=== PATIENT | female | born 1965 | race Caucasian/White ===

== ENCOUNTER 2018-12-30 20:51 | Observation (INO) ==
[2018-12-30 21:27] LABS: BASO# 0.02 X1000 (0.0-0.2); BASO% 0.2 % (0.0-0.8); EOS# 0.09 X1000 (0.0-0.7); EOS% 0.8 % (0.0-10.0); HEMOGLOBIN 11.4 g/dL (12.0-16.0); IMM GRAN# 0.05 X1000 (0.0-0.04); IMM GRAN% 0.4 % (0.0-0.5); LYMPH# 2.79 X1000 (1.2-3.4); LYMPH% 24.8 % (20.5-51.1); MCH 28.1 PG (27-31); MCHC 32.6 g/dL (33-37); MCV 86.2 FL (81-99); MONO% 7.1 % (1.7-9.3); MPV 11.4 FL (7.4-10.4); NEUT# 7.51 X1000 (1.4-6.5); NEUT% 66.7 % (42.2-75.2); PLT 251 X1000 (130-400); RBC 4.06 XMIL (4.2-5.4); RDW 16.2 % (11.5-14.5); WBC 11.26 X1000 (4.8-10.8)
[2018-12-30 21:38] LABS: AGAP 11; ALB/GLOB RATIO 1.6; ALBUMIN 3.4 g/dL (3.5-5.0); ALKALINE PHOSPHATASE 79 U/L (32-104); BUN 6 mg/dL (8-22); CALCIUM 8.5 mg/dL (8.8-10.2); CHLORIDE 101 mmol/L (98-107); CK PROFILE 46 U/L (24-173); COSMO 272; CREATININE 0.6 mg/dL (0.5-0.9); ESTIMATED GFR > 60; GLUCOSE 111 mg/dL (70-104); GOT 14 U/L (10-30); GPT 6 U/L (10-36); SODIUM 137 mmol/L (136-145); TCO2 25 mmol/L (25-35); TOTAL BILIRUBIN 0.25 mg/dL (0.20-1.00); TOTAL PROTEIN 5.5 g/dL (6.3-8.3)
[2018-12-30 21:45] LABS: INR 0.92; PROTIME 13.1 Seconds (11.0-16.0)
[2018-12-30 21:46] LABS: PTT 29.3 Seconds (22.3-41.8)
[2018-12-30 21:55] LABS: URINE SOURCE CLEAN CATCH
--- NOTE | 2018-12-30 22:00 | Diag Imaging Result Doc PS360 ---
EXAM: CHEST-2 VIEWS INDICATION: chest pain TECHNIQUE: 2 views COMPARISON: 12/08/2015 FINDINGS: The lungs are grossly clear. There is no discrete pleural fluid collection or pneumothorax. The cardiomediastinal silhouette and central vasculature are grossly unremarkable. IMPRESSION: No evidence of acute pathology by plain radiograph. Electronically signed by Sage Lake 12/30/2018 9:58 PM
[2018-12-30 22:04] LABS: BILIRUBIN URINE NEGATIVE (NEGATIVE); BLOOD URINE NEGATIVE (NEGATIVE); COLOR YELLOW; GLUCOSE URINE NEGATIVE (NEGATIVE); KETONE URINE NEGATIVE (NEGATIVE); LEUKOCYTES URINE MODERATE (NEGATIVE); NITRITE URINE NEGATIVE (NEGATIVE); PH URINE 5.5; PROTEIN URINE NEGATIVE (NEGATIVE); SP GRAVITY URINE 1.004; TURBIDITY URINE CLEAR (CLEAR); UR EPITHELIAL CELLS <10 /HPF (<10); URINE BACTERIA NEGATIVE /HPF; URINE RBC <10 /HPF (<10); URINE WBC 20-40 /HPF (<10); UROBILINOGEN URINE NORMAL (NORMAL)
[2018-12-30] MEDS ORDERED: ROCEPHIN 1 GM in NS 50 ML IV ONE (22:13)
--- NOTE | 2018-12-30 23:21 | PROVIDER DOCUMENTATION ---
This chart was entered by Martha Lake Scribe, acting as scribe for Adina Head MD. HPI-Chest Pain - General Chief Complaint: Chest Pain Stated Complaint: CHEST PAIN Time Seen by Provider: 12/30/18 21:03 Source: patient Allergies/Adverse Reactions: Patient Allergies Allergy/AdvReac Type Severity Reaction Status Date / Time morphine Allergy Severe ANAPHYLAXIS Verified 02/05/18 09:09 aspirin AdvReac Unknown NAUSEA Verified 02/05/18 09:09 Home Medications: Home Medication List Medication Instructions Recorded Confirmed Last Taken Type Alprazolam 1 mg PO TID 12/08/15 02/05/18 12/08/15 12:00 History Citalopram [Celexa] 20 mg PO DAILY 02/05/18 02/05/18 Unknown History Flurazepam [Dalmane] 30 mg PO QHS 02/05/18 02/05/18 Unknown History Hydrocodone/Acetaminophen [Monument 1 each PO PRN PRN 02/05/18 02/05/18 Unknown History 10-325 Tablet] Pantoprazole [Protonix] 40 mg PO DAILY@0700 02/05/18 02/05/18 Unknown History Pramipexole Di-HCl [Mirapex] 1 mg PO DAILY 02/05/18 02/05/18 Unknown History Oxycodone HCl/Acetaminophen 1 ea PO Q4H PRN #20 tab 02/13/18 Unknown Rx [Percocet 7.5-325 mg Tablet] - History of Present Illness-CP Nature of Presenting Problem: 53 yof presents to er w/co cp starting at 1800 in the substernal region. pt states pain radiates to left arm. pt has hx of multiple syncope episodes and wear a halter to measure rhythms. 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 pt is a smoker and smokes 1/2 ppd. Location: reports: substernal Chest Pain Radiation: reports: arms (left) Quality of Pain: reports: other (squeezing) Severity in ED: mild Onset/Duration: 1-3 hours ago Timing: still present Review of Systems - Adult - REVIEW OF SYSTEMS - ADULT Constitutional: reports: no symptoms reported Eyes: reports: no symptoms reported Ears, Nose, Mouth & Throat: reports: no symptoms reported Cardiovascular: reports: see HPI, chest pain (substernal radiating to left arm). denies: heart murmur, irregular heart rate, orthopnea, palpitations Respiratory: reports: no symptoms reported Gastrointestinal: reports: no symptoms reported Genitourinary: reports: no symptoms reported Musculoskeletal: reports: no symptoms reported Integumentary: reports: no symptoms reported Neurological: reports: no symptoms reported Psychiatric: reports: no symptoms reported Endocrine: reports: no symptoms reported Hematologic/Lymphatic: reports: no symptoms reported Allergic/Immunologic: reports: no symptoms reported All Other Systems: Reviewed and Negative Past History - Adult - PAST MEDICAL HISTORY-ADULT Review of Records: reports: Old Records Reviewed, Nursing Assessment Review, Medications Reviewed, Social history reviewed & non-contributory. Major Childhood Illnesses: reports: denies history Cardiovascular: reports: CAD, HTN, other (cardiac cath) Respiratory: reports: denies history Gastrointestinal: reports: other (diverticulitis) Obstetrical/Gynecological: reports: denies history Genitourinary: reports: denies history Musculoskeletal: reports: chronic pain, other (restless leg syndrome, neuropathy) Neurological: reports: denies history Psychiatric: reports: anxiety Endocrine/Immune: reports: denies history Other Conditions: reports: denies history - PRIOR SURGERIES/PROCEDURES Surgical/Procedure History: reports: appendectomy, cholecystectomy, hysterectomy , orthopedic (extremity) (right shoulder), gastric bypass - IMMUNIZATION STATUS Childhood Immunizations: UTD Flu Vaccine: See Nurse Assessment - FAMILY HISTORY Family History: CAD under 55yo (47 yr old female of 1st degree blood line) - SOCIAL HISTORY Smoking: cigarettes, less than 1 pack/day Provider spent 3-5 mins advising pt. on dangers of tobacco.: Discussed manners to quit use, and f/u contacts for add'l counseling. Substance Use: none/never Physical Exam-General - PHYSICAL EXAM-ADULT Initial Vital Signs Reviewed: Yes - CONSTITUTIONAL General Appearance: alert, mild distress, anxious, other (tearful). negative: cachetic, lethargic, slow to respond - EYES Eyes: PERRL/EOMI - HEAD, EARS, NOSE, MOUTH & THROAT HENMT: normocephalic/atraumatic, moist mucous membranes, normal ENT inspection - NECK Neck: non-tender, full range of motion, supple, normal inspection - RESPIRATORY Respiratory: chest non-tender, lungs clear, normal breath sounds - CARDIOVASCULAR Cardiovascular: normal peripheral pulses, regular rate, rhythm - CHEST (BREASTS) Chest/Breast: tenderness (substernal, reproducable w/self and with motion.). negative: no masses/lumps, no tenderness, nipple discharge - GASTROINTESTINAL (ABDOMEN) Abdominal Exam: normal bowel sounds, non tender, soft - LYMPHATIC Lymphatic: no adenopathy - MUSCULOSKELETAL Back Exam: normal inspection, no CVA tenderness, no vertebral tenderness Extremity: normal range of motion, non-tender, normal inspection Peripheral Pulses: radial (R): 2+, radial (L): 2+ - SKIN Integumentary: normal color, normal turgor, warm/dry - NEUROLOGIC Neurologic: supervisor drying and softening II-XII nml as tested, grossly normal, no motor/sensory deficits - PSYCHIATRIC Psych/Mental Status: normal mood/affect, normal thought content, normal thought process, oriented x 3 - HEART Score HEART Score: History: Moderately Suspicious HEART Score: ECG: Normal HEART Score: Age: 45-65 Years HEART Score: Risk Factors for Atherosclerotic Disease: 1 or 2 Risk Factors HEART Score: Troponin: < or = Normal Limit Total HEART Score:: 3 Progress - PLAN OF CARE/RESULTS Progress/Plan/Lab Results: Vital Signs - 8 hr 12/30/18 21:08 12/30/18 21:19 12/30/18 21:21 Pulse Rate 76 74 73 Respiratory Rate 21 16 9 L Blood Pressure 91/61 110/69 O2 Sat by Pulse Oximetry 96 96 96 12/30/18 21:38 12/30/18 21:43 12/30/18 21:50 Pulse Rate 78 78 72 Respiratory Rate 14 22 26 H Blood Pressure 125/75 O2 Sat by Pulse Oximetry 98 96 97 12/30/18 22:00 Pulse Rate 71 Respiratory Rate 16 Blood Pressure O2 Sat by Pulse Oximetry 96 Laboratory Results - last 24 hr 12/30/18 12/30/18 12/30/18 21:05 21:05 21:05 WBC 11.26 H RBC 4.06 L Hgb 11.4 L Hct 35.0 L MCV 86.2 MCH 28.1 MCHC 32.6 L RDW Std Deviation 16.2 H Plt Count 251 MPV 11.4 H Immature Gran % (Auto) 0.4 Neut % (Auto) 66.7 Lymph % (Auto) 24.8 Loving % (Auto) 7.1 Eos % (Auto) 0.8 Baso % (Auto) 0.2 Immature Gran # (Auto) 0.05 H Neut # (Auto) 7.51 H Lymph # (Auto) 2.79 Loving # (Auto) 0.80 H Eos # (Auto) 0.09 Baso # (Auto) 0.02 PT INR PTT (Actin FS) Sodium 137 Potassium 4.0 Chloride 101 Carbon Dioxide 25 Anion Gap 11 BUN 6 L Creatinine 0.6 Estimated GFR/1.73 m2 > 60 BUN/Creatinine Ratio 10 Glucose 111 H Calculated Osmolality 272 Calcium 8.5 L Total Bilirubin 0.25 AST 14 ALT 6 L Alkaline Phosphatase 79 Creatine Kinase 46 Troponin T Cuo-H-Ywvdllibsfx Pept 80 Total Protein 5.5 L Albumin 3.4 L Globulin 2.1 Albumin/Globulin Ratio 1.6 Urine Source Urine Color Urine Turbidity Urine pH Ur Specific Ambia Urine Protein Ur Glucose (Stick) Ur Ketones (Stick) Urine Blood Urine Nitrite Urine Bilirubin Urobilinogen Dipstick Urine Leukocytes Urine WBC (Auto) Urine RBC (Auto) U Epithel Cells (Auto) Urine Bacteria (Auto) 12/30/18 12/30/18 12/30/18 21:05 21:05 21:41 WBC RBC Hgb Hct MCV MCH MCHC RDW Std Deviation Plt Count MPV Immature Gran % (Auto) Neut % (Auto) Lymph % (Auto) Loving % (Auto) Eos % (Auto) Baso % (Auto) Immature Gran # (Auto) Neut # (Auto) Lymph # (Auto) Loving # (Auto) Eos # (Auto) Baso # (Auto) PT 13.1 INR 0.92 PTT (Actin FS) 29.3 Sodium Potassium Chloride Carbon Dioxide Anion Gap BUN Creatinine Estimated GFR/1.73 m2 BUN/Creatinine Ratio Glucose Calculated Osmolality Calcium Total Bilirubin AST ALT Alkaline Phosphatase Creatine Kinase Troponin T < 0.010 Vbr-H-Xxpzcnvdpug Pept Total Protein Albumin Globulin Albumin/Globulin Ratio Urine Source CLEAN CATCH Urine Color YELLOW Urine Turbidity CLEAR Urine pH 5.5 Ur Specific Ambia 1.004 Urine Protein NEGATIVE Ur Glucose (Stick) NEGATIVE Ur Ketones (Stick) NEGATIVE Urine Blood NEGATIVE Urine Nitrite NEGATIVE Urine Bilirubin NEGATIVE Urobilinogen Dipstick NORMAL Urine Leukocytes MODERATE A Urine WBC (Auto) 20-40 A Urine RBC (Auto) <10 U Epithel Cells (Auto) <10 Urine Bacteria (Auto) NEGATIVE Orders Category Date Time Status CHEST-2 VIEWS [RAD] Stat Exams 12/30/18 21:[address] HEAD W/O CONTRAST [CT] Stat Exams 12/30/18 22:10 Taken CBC WITH ELECTRONIC DIFF [HEME] Stat Lab 12/30/18 21:05 Completed CK PROFILE [SP CHEM] Stat Lab 12/30/18 21:05 Completed CK PROFILE [SP CHEM] Stat Lab 12/30/18 23:15 Uncollected COMPREHENSIVE METABOLIC PANEL [CHEM] Stat Lab 12/30/18 21:05 Completed PRO B-NATRIURETIC PEPTIDE Stat Lab 12/30/18 21:05 Completed PT [PROTIME WITH INR] [COAG] Stat Lab 12/30/18 21:05 Completed PTT [COAG] Stat Lab 12/30/18 21:05 Completed TROPONIN T Stat Lab 12/30/18 21:05 Completed TROPONIN T Stat Lab 12/30/18 23:15 Uncollected URINALYSIS W/POSS RFLX CULT [URINALYSIS] Stat Lab 12/30/18 21:41 Completed URINE CULTURE [RM] Routine Lab 12/30/18 22:05 Received CefTRIAXONE [Rocephin] 1 gm Med 12/30/18 22:13 Discontinued 0.9% Sodium Chloride Inj [Ns] 50 ml IV NOW EKG [EKG] Stat Ther 12/30/18 20:51 Ordered EKG [EKG] Stat Ther 12/30/18 21:16 Ordered Result Diagrams: 12/30/18 21:05 12/30/18 21:05 - REASSESSMENT Reassessment #1 Time Reassessed: 22:11 Status: other (PER PATIENT, STATES SHE HAD DYSURIA THIS MORNING BUT NOT BEFORE WHEN SHE HAD MULTIPLE SYNCOPAL EPISODES. PATIENT STATES SHE HAS NOT HAD ANY CT OF HEAD FOR HER OUTPATIENT SYNCOPAL WORKUP. I WILL ORDER CT OF THE HEAD. GIVEN THAT PATIENT HAS BEEN HAVING MULTIPLE SYNCOPAL EPISODES, RISK OF MOTHER WITH WI <55 YEARS OLD, CURRENTLY A SMOKER WITH CONCERNING HPI.) Reassessment #2 Status: other (SPOKE TO HOSPITALIST REGARDING THIS PATIENT WHO CAME IN TODAY W ITH HEAVYNESS OF CHEST DISCOMFORT WITH HISTORY OF MOTHER WITH WI <55 YEARS OLD, HEAVY SMOKER WELL CURRENTLY BEING WORK UP FOR OUTPATIENT W/ MULTIPEL SYNCOPAL EPSIDOES; CT NEGAGIVE. ENDORSE DYSURIA TODAY WHICH I STARTED CEFTRAIXONE.) Departure - Departure Date of Disposition Decision: 12/30/18 Time of Disposition Decision: 23:20 DIAGNOSIS: Chest pain in adult, UTI (urinary tract infection), Syncopal episodes Disposition: ADMITTED INPATIENT 09 Certified Medical Emergency: Emergent Condition: Fair - Critical Care Note This patient required my direct & personal management of CC.: No Attestation - Physician/ SHEILA Attestation Patient care was provided by Advanced Practice Provider:: No The physician spent face to face time with patient:: Yes Advanced Practice Provider documentation review:: Supervising physician onsite and consulted in the evaluation and care of this patient. The physician did have a face to face encounter with the patient. This chart was documented by the indicated scribe, (Martha Lake, [place]) and accurately reflects the services I performed and decisions made by me, Adina Head MD, as attested by the provider's signature.
--- NOTE | 2018-12-31 02:10 | HISTORY AND PHYSICAL ---
PRIMARY CARE PHYSICIAN: Dr. Garfield Fam. CHIEF COMPLAINT: Chest pain. HISTORY OF PRESENTING ILLNESS: The patient is a 53-year-old female with a history of hypertension, GERD and depression who had presented to emergency department with a 1-day history of having chest pain. She described it as pressure-like, states that she has some mild shortness of breath. She apparently was worked up recently for syncopal episodes and had a Holter placed several days ago. The patient was evaluated in the emergency department and due to her presenting symptoms it was thought that she would need admission for further management. At the time of my examination the patient denied any headache, visual changes, nausea, vomiting, diarrhea, hemoptysis, melena or weight changes but complained of chest pain. PAST MEDICAL HISTORY: Includes hypertension, GERD, peripheral neuropathy, depression. PAST SURGICAL HISTORY: Hysterectomy, back surgery, bilateral shoulder surgery, bilateral carpal tunnel surgery, cholecystectomy, appendectomy. ALLERGIES: Morphine. CURRENT MEDICATIONS: Include atenolol 25 mg p.o. b.i.d., buprenorphine and naloxone 1 tablet b.i.d., BuSpar 7.5 mg p.o. b.i.d., gabapentin 600 mg p.o. q.6 hours, Robaxin 750 mg p.o. t.i.d., Protonix 40 mg p.o. daily, Mirapex 1 mg p.o. daily, prazosin 2 mg p.o. at bedtime, Mysoline 75 mg p.o. at bedtime, Inderal 10 mg p.o. b.i.d., , sucralfate 1 g p.o. t.i.d., trazodone 100 mg p.o. at bedtime, Effexor 150 mg p.o. daily. SOCIAL HISTORY: A 30 pack-year history of smoking. Denies any history of alcohol or illicit drug use. FAMILY HISTORY: Positive for coronary artery disease in father. REVIEW OF SYSTEMS: A fourteen point review of system is as in HPI. Other systems negative. PHYSICAL EXAMINATION: GENERAL: Cooperative, friendly female. She is resting comfortably now. VITAL SIGNS: Pulse 76, respirations 21 blood pressure 110/69. HEENT: Atraumatic, normocephalic. Extraocular movements intact. PERRLA. NECK: No masses. CHEST: Clear to auscultation. CARDIOVASCULAR: Regular rate and rhythm. ABDOMEN: Soft. Positive bowel sounds. EXTREMITIES: No edema. NEUROLOGIC: She is awake, alert, oriented x3. : No bladder distention. SKIN: Warm. LABORATORIES AND STUDIES: WBC 11.26, hemoglobin 11.4, hematocrit 35.0, platelets 251,000. Sodium 137, potassium 4.0, chloride 101, CO2 25, BUN is 6, creatinine 0.6, glucose 111. Chest x-ray is negative. ASSESSMENT: The patient is a 53-year-old female with a history of hypertension, gastroesophageal reflux disease and depression who had presented to the emergency department with a 1-day history of chest pain. We will place the patient for observation and further evaluation management. 1. Chest pain. 2. Hypertension. 3. Gastroesophageal reflux disease. 4. Depression. PLAN: 1. We will admit the patient to medical floor with telemetry. 2. We will continue with cardiac workup. Check EKG, serial cardiac enzymes. Have the patient continue on aspirin. We will use sublingual nitroglycerin and morphine p.r.n. chest pain. 3. We will monitor blood pressure closely. Resume antihypertensive agent. 4. We will restart other home medications. 5. Put the patient on DVT prophylaxis with SCDs. 6. We will continue to follow and reassess. Make further recommendation based on the patient's clinical course. cc: Aroldo Jeffries MD MTDD
[2018-12-31] MEDS ORDERED: INDERAL PO PRN (02:28)
[2018-12-31] MEDS: SEROQUEL PO SCH ×2 (06:23→22:00)
[2018-12-31] MEDS: NEURONTIN PO SCH ×4 (06:23→22:00)
--- NOTE | 2018-12-31 06:59 | Diag Imaging Result Doc PS360 ---
EXAM: CT HEAD W/O CONTRAST 12/30/2018 HISTORY: MULTIPLE SYNCOPAL EPISODES TECHNIQUE: This exam was performed using automated exposure control, adjustment of mA or kV according to patient size, and/or use of iterative reconstruction technique. COMMENT: The current examination is compared with the previous study of 11/19/2017. There is no evidence of mass effect, bleed, or abnormal extra-axial fluid collection. Compared to the previous examination there has been no significant change. The visualized paranasal sinuses are clear. The calvarium is intact. IMPRESSION: No evidence of acute intracranial disease. Electronically signed by Matthew Lan 12/31/2018 6:56 AM
[2018-12-31] MEDS: CARAFATE PO SCH ×4 (07:38→22:00)
[2018-12-31] MEDS: PRILOSEC PO SCH (07:38)
--- NOTE | 2018-12-31 08:10 | EKG Report ---
Test Performed on : 12/30/2018 8:57:01 PM Test Reason : chest pain Blood Pressure : / mmHG Vent. Rate : 074 BPM Atrial Rate : 074 BPM P-R Int : 172 ms QRS Dur : 086 ms QT Int : 410 ms P-R-T Axes : 060 -23 059 degrees QTc Int : 455 ms Normal sinus rhythm. Low voltage QRS Nonspecific T wave abnormality Abnormal ECG When compared with ECG of 05-JUL-2015 11:44, No significant change was found Unconfirmed Result
--- NOTE | 2018-12-31 08:10 | EKG Report ---
Test Performed on : 12/30/2018 11:20:05 PM Test Reason : CP Blood Pressure : / mmHG Vent. Rate : 073 BPM Atrial Rate : 073 BPM P-R Int : 172 ms QRS Dur : 090 ms QT Int : 418 ms P-R-T Axes : 058 -19 024 degrees QTc Int : 460 ms Sinus rhythm. with frequent premature ventricular complexes. in a pattern of bigeminy. Low voltage QRS Borderline ECG When compared with ECG of 30-DEC-2018 20:57, (Unconfirmed) premature ventricular complexes. are now present Unconfirmed Result
[2018-12-31] MEDS: ASPIRIN PO SCH (08:57)
[2018-12-31] MEDS: BUSPAR PO SCH ×2 (08:57→22:00)
[2018-12-31] MEDS: EFFEXOR PO SCH (08:57)
[2018-12-31] MEDS ORDERED: MIRAPEX PO SCH ×2 (09:00→21:00)
[2018-12-31] MEDS ORDERED: TENORMIN PO SCH (09:00)
--- NOTE | 2018-12-31 12:07 | CARDIOLOGY CONSULTATION ---
DATE: 12/31/2018 HISTORY OF PRESENT ILLNESS: A 53-year-old, lady with history of hypertension, gastroesophageal reflux disease, syncope who presents with having epigastric discomfort after she ate something. Subsequently this progress to retrosternal chest discomfort with radiation to the left shoulder. She was seen in our office and is undergoing workup for having had syncopal episode. She also had a Holter monitoring done in our office. We will request records of the same. This admission was not associated with any palpitations or any syncope. She has been on multiple medications as listed below. She does not complain of any nausea or vomiting. There is no history of hematemesis or melena. REVIEW OF SYSTEMS: 14 point review of systems was done.GI System/Respiratory System: Revealed no cough. There is no fevers or chills. Endocrine System: Stable. PAST MEDICAL HISTORY: 1. Hypertension. 2. History of syncope. 3. Gastroesophageal reflux disease. 4. Peripheral neuropathy. 5. Depression. PAST SURGICAL HISTORY: 1. Hysterectomy. 2. Back surgery. 3. Bilateral shoulder surgery. 4. Bilateral carpal tunnel. 5. Cholecystectomy. 6. Appendectomy. ALLERGIES: She is allergic to morphine. HOME MEDICATIONS: 1. 25 mg of atenolol p.o. twice daily, Buprenorphine-naloxone, BuSpar, gabapentin, Robaxin, Protonix, Mirapex, prazosin 2 mg at bedtime, Mysoline, Inderal 10 mg p.o. b.i.d., sucralfate, Effexor 150 mg a day. SOCIAL HISTORY: 30 pack-year history of smoking. Denies any alcohol abuse. PHYSICAL EXAMINATION: Vital Signs: Blood pressure was 91/61 on admission. Subsequent blood pressure 110/69. Neck: Jugular venous pressure was normal. Heart: First and second heart sounds were heard. There is no S3, S4, or gallop. Respiratory: Normal air entry. There is no crepitations or rhonchi. Abdomen: Soft, nontender. There was no guarding or rigidity. Bowel sounds were heard. Central nervous system: Alert and oriented. Moving all 4 extremities. Detailed central nervous system examination not performed. Extremities: Revealed no pedal edema. HEENT: Atraumatic, normocephalic. Pupils were equal and reacting to light. ASSESSMENT AND PLAN: Ms. Estela Holt is a 53-year-old lady with history of hypertension, gastroesophageal reflux disease, peripheral neuropathy, depression, and multiple surgeries in the past. She comes in with complaints of epigastric discomfort with radiation to the shoulder and left arm. The patient has been ruled out for myocardial infarction by cardiac enzymes. The patient has a 30 pack-year history of smoking. PLAN: 1. From a cardiac standpoint, we will set her up to undergo a Cardiolite stress test to rule out ischemia. We will get an echocardiogram to assess cardiac and valvular function. 2. She has had episode of syncope. She is on multiple medications which could drop her blood pressure as well and her blood pressure was low when she came in. We will discontinue the Inderal and prazosin. Continue with the low dose of atenolol 25 mg a day. We will also get carotid Dopplers. 3. She has gastroesophageal reflux disease, which is likely the cause of her symptoms as well. 4. She has had multiple surgeries and is on multiple medications for anxiety depression and peripheral neuropathy. I have not made any other changes to her medications. Thank for the consult. We will follow her hospital course. cc: Shlomo Darling MD
[2018-12-31] MEDS: NALOXONE HCL Sublingual SCH ×2 (13:38→23:05)
[2018-12-31] MEDS: BUPRENORPHINE HCL Sublingual SCH ×2 (13:38→23:05)
[2018-12-31] MEDS: NICODERM PATCH TD SCH (18:41)
[2018-12-31] MEDS ORDERED: MYSOLINE PO SCH (21:00)
[2018-12-31] MEDS ORDERED: DESYREL PO SCH (21:00)
[2018-12-31] MEDS ORDERED: MINIPRESS PO SCH (21:00)
[2019-01-01] MEDS: NEURONTIN PO SCH ×3 (03:11→14:27)
[2019-01-01] MEDS: CARAFATE PO SCH ×3 (07:02→16:29)
[2019-01-01] MEDS: PRILOSEC PO SCH (07:02)
[2019-01-01] MEDS ORDERED: LEXISCAN ONE (08:37)
[2019-01-01] MEDS ORDERED: TENORMIN PO SCH (09:00)
[2019-01-01] MEDS: NALOXONE HCL Sublingual SCH (09:00)
[2019-01-01] MEDS: BUPRENORPHINE HCL Sublingual SCH (09:00)
[2019-01-01] MEDS: BUSPAR PO SCH (09:45)
[2019-01-01] MEDS: EFFEXOR PO SCH ×3 (09:46→14:08)
[2019-01-01] MEDS: ASPIRIN PO SCH (09:46)
--- NOTE | 2019-01-01 10:51 | ECHO REPORT ---
ORDER DATE: 12/31/2018 INTERPRETING PHYSICIAN: Dr. Johnson CLINICAL INDICATIONS: 53-year-old female with chest pain, hypertension. M-MODE MEASUREMENTS: Left ventricle end diastole: 4.6 cm. Left ventricle end systole: 3.6 cm. Posterior wall: 0.8 cm. Interventricular septum: 0.7 cm. Left atrium: 3.0 cm. Aortic root: 4.0 cm. SUMMARY OF 2-DIMENSIONAL IMAGIN. Left ventricular function is normal, ejection fraction of 67%. 2. Mild degree of mitral regurgitation noted. Mitral valve opens normally. 3. Pulse wave Doppler of mitral inflow is normal. 4. Tissue Doppler of septal and lateral mitral annulus averages 7 cm. 5. Pulmonary venous flow is normal. 6. There is no diastolic dysfunction. 7. Tricuspid valve shows minimal degree of regurgitation. 8. Pulmonary pressure is estimated in the range of 28-33 mmHg. 9. Pulmonic valve is normal. Color flow mapping unremarkable 10.The atria appeared to be normal. 11.There is mild degree of tricuspid regurgitation. 12.Aortic valve has 3 cusps. They open normally. Color flow mapping unremarkable. 13.There is no pericardial effusion, mass, or thrombus. Clinical correlation recommended. cc: MD Marcela Galvin PA
[2019-01-01] MEDS: NICODERM PATCH TD SCH (11:33)
[2019-01-01] MEDS ORDERED: ZOFRAN IV PRN (13:33)
[2019-01-01] MEDS ORDERED: PROTONIX PO ONE (13:35)
--- NOTE | 2019-01-01 14:28 | Diag Imaging Result Document ---
PROCEDURE NAME: MYOCARDIAL PERF SCAN, STR/REST - 12/31/2018 PROCEDURE: Lexiscan Cardiolite stress test. DESCRIPTION OF PROCEDURE IN DETAIL: Lexiscan was infused per standard protocol. Patient had chest discomfort during Lexiscan infusion. Stress electrocardiogram was negative for ischemia. Following Lexiscan infusion, Cardiolite was injected. Gated SPECT images were obtained in standard views. Total of 25.9 mCi of Cardiolite was injected for the rest phase; 26.2 mCi of Cardiolite was injected for the stress phase. Images revealed normal left ventricular cavity size. There is significant chest wall and diaphragmatic attenuation. There is a low-grade, small- sized, reversible defect in the left ventricular apex. This is more suggestive of attenuation defect, low probability of ischemia. Left ventricular ejection fraction by gated SPECT was 80%. CONCLUSIONS: 1. Negative Lexiscan stress electrocardiogram. 2. Myocardial perfusion images revealed low-grade, small-sized, reversible defect in the left ventricular apex with significant chest wall attenuation. This is likely to represent attenuation defect. 3. Left ventricular ejection fraction by gated SPECT was 80%, wall motion was normal. cc: MD Marcela Magana PA
[2019-01-01 15:15] VITALS: BP 90/57
--- NOTE | 2019-01-01 22:55 | DISCHARGE SUMMARY ---
ADMISSION DATE: 12/31/2018 DISCHARGE DATE: 01/01/2019 DISCHARGE DIAGNOSES: 1. Atypical chest pain. 2. Hypotension, iatrogenic due to multiple antihypertensive medication use. 3. Anxiety and gastrointestinal reflux disease contributing to chest pain. 4. Asymptomatic bacteriuria: Not treated OTHER DIAGNOSES: 1. History of essential hypertension. 2. History of gastroesophageal reflux disease. 3. History of anxiety and depression on multiple antianxiety and antidepressants. 4. Recent history of syncope with likely unremarkable 48 hours home monitor. 5. History of suspected essential tremor. 6. History of chronic pain. 7. Essential hypertension. DISCHARGE MEDICATIONS: Trazodone 100 mg at nighttime, pramipexole 1 mg at nighttime, primidone 75 mg at nighttime, quetiapine 300 mg at nighttime, gabapentin 600 mg q.6 hours, buspirone 7.5 mg b.i.d. sucralfate 1 g p.o. a.c. and at bedtime, venlafaxine 150 mg daily, Protonix 40 mg daily, Robaxin 750 mg p.o. t.i.d., atenolol 25 mg p.o. b.i.d., buprenorphine naloxone 5.7 mg sublingual b.i.d., aspirin 81 mg daily chewable tablets 30 tablets have been prescribed. VITAL SIGNS AT THE TIME OF DISCHARGE: Temperature 98 degrees, pulse 57, blood pressure 90/57 saturating 93% on room air. PHYSICAL EXAMINATION: General: Does not appear in any acute distress. HEENT: Oral cavity is moist. Lungs: Air entry bilaterally equal. No wheeze, rhonchi, crackles. Cardiovascular: S1, S2 normal. No murmur or gallop. Abdomen: Soft, nontender. Extremities: No lower extremity edema. Patient denies urinary urgency, frequency or burning. LABS: She on presentation did have WBC count of 11,000, hemoglobin of 11.4, platelets of 251,000. Normal coags, normal electrolytes with creatinine of 0.6. Her troponins were negative. Lipid panel suggested LDL of 97 and total cholesterol of 164. EKG on admission had suggested normal sinus rhythm and low voltage QRS. CONSULTATIONS DURING HOSPITALIZATION: Cardiology, Dr. Darling. OTHER IMAGING DURING HOSPITALIZATION: Echocardiogram had suggested ejection fraction of 67%, mild degree of mitral regurgitation without any diastolic dysfunction with pulmonary pressure of 28 to 33. Nuclear medicine myocardial perfusion scan had suggested negative Lexiscan stress electrocardiogram. Myocardial images had suggested low grade small sized reversible defect in the left ventricular apex with significant chest wall attenuation, which was likely to represent attenuation defect with normal ejection fraction and normal wall motion. HOSPITAL COURSE SUMMARY: Ms. Holt is a 53-year-old lady with past medical history of anxiety, depression, gastroesophageal reflux disease who presented with one-day history of chest pain, which was pressure-like, associated with mild shortness of breath. She was recently worked up for a syncopal episode and then had a 48 hours Holter monitor at home. In the emergency room, she was admitted for further evaluation of her chest pain. During hospital admission, her EKG, troponins, echocardiogram and nuclear medicine stress test were largely unremarkable except a small apical defect which was thought to be chest wall attenuation. She did not have any more chest pain episode. It was also detected that she had hypotension, which was thought to be secondary to multiple antihypertensive medication use and her propranolol and prazosin where stopped following which her blood pressure was in acceptable range. She was ambulatory without any symptoms. The patient was started on 81 mg of aspirin at the time of discharge. Her cholesterol panel was largely within acceptable range. She was advised to follow up with Dr. Alfaro who is her primary pinmaker within 1 weeks' time. It was thought that the patient's chest pain could be in the setting of anxiety and gastric reflux symptoms. She was advised to follow up with her regular doctor. She was also advised to consider tapering her medications down as she was on multiple medications, which could potentially contribute to hypotension and predispose to cardiac arrhythmia with the EKG changes. At the time of discharge, all of the patient and her family members' questions at the bed were answered satisfactorily. TIME SPENT: More than 30 minutes was spent in discharging this patient cc: Modesto Fuentes MD [facility]ITAL[facility]ranay
[2019-01-02] MEDS ORDERED: PROTONIX PO SCH (07:00)
== END 2019-01-01 18:52 | disposition home or self-care (01) ==
LOC: 3N 20:51 → ED 20:51 → SUATTDRO 12-31 01:44
PROVIDERS: ATTEND Internal Medicine
CPT/HCPCS: 70450; 71020; 71046; 78452; 80053; 80061; 81001; 82550; 83721; 83880; 84484; 85025; 85610; 85730; 87077; 87088; 87186; 93005; 93017; 93306; 93880; 94761; 96365; 96366; 96375; 99285; A9270; A9500; G0378; J0696; J2405; J2785

== ENCOUNTER 2019-03-26 19:03 | Inpatient (IN) ==
[2019-03-26] MEDS ORDERED: NS 1,000 ML ONE ×3 (19:11→21:00)
[2019-03-26 19:35] LABS: URINE SOURCE CATH
[2019-03-26 19:38] LABS: BILIRUBIN URINE NEGATIVE (NEGATIVE); BLOOD URINE NEGATIVE (NEGATIVE); COLOR YELLOW; GLUCOSE URINE NEGATIVE (NEGATIVE); KETONE URINE NEGATIVE (NEGATIVE); LEUKOCYTES URINE NEGATIVE (NEGATIVE); NITRITE URINE NEGATIVE (NEGATIVE); PROTEIN URINE NEGATIVE (NEGATIVE); SP GRAVITY URINE 1.003; TURBIDITY URINE CLEAR (CLEAR); UROBILINOGEN URINE NORMAL (NORMAL)
[2019-03-26 19:39] LABS: UR EPITHELIAL CELLS <10 /HPF (<10); URINE BACTERIA NEGATIVE /HPF; URINE RBC <10 /HPF (<10); URINE WBC <10 /HPF (<10)
[2019-03-26 19:40] LABS: ALLEN TEST YES; BE -0.7 mmoll (-3.0-3.0); BLOOD TYPE ARTERIAL; HCO3-(ACT) 24.3 mmoll (20.0-26.0); METHB 0.6 % (0.0-1.5); O2(CT) 14.6 mL/dL (15.0-23.0); O2HB 93.5 % (95.0-99.0); PCO2(98.6) 44 mmHg (35-45); PO2(98.6) 305 mmHg (60-100); SAMPLE BLOOD; THB 10.5 g/dL (11.5-17.4); pH(98.6) 7.36 (7.35-7.45)
[2019-03-26 19:43] LABS: MODALITY NRB
[2019-03-26 19:45] LABS: UR AMPHETAMINES QUAL NONE DETECTED (NONE DETECT); UR BARBITUATES QUAL PRESUMPTIVE POSITIVE (NONE DETECT); UR BENZODIAZEPIN QUAL NONE DETECTED (NONE DETECT); UR CANNABINOIDS QUAL NONE DETECTED (NONE DETECT); UR COCAINE QUAL NONE DETECTED (NONE DETECT); UR METHADONE QUAL NONE DETECTED (NONE DETECT); UR OPIATES QUAL NONE DETECTED (NONE DETECT); UR OXYCODONE QUAL NONE DETECTED (NONE DETECT); UR PCP QUAL NONE DETECTED (NONE DETECT)
[2019-03-26 19:56] LABS: BASO# 0.02 X1000 (0.0-0.2); BASO% 0.3 % (0.0-0.8); EOS# 0.13 X1000 (0.0-0.7); HEMATOCRIT 32.5 % (37.0-47.0); HEMOGLOBIN 10.4 g/dL (12.0-16.0); LYMPH# 2.22 X1000 (1.2-3.4); LYMPH% 34.9 % (20.5-51.1); MCV 87.6 FL (81-99); MONO# 0.53 X1000 (0.11-0.59); MONO% 8.3 % (1.7-9.3); MPV 10.4 FL (7.4-10.4); NEUT# 3.46 X1000 (1.4-6.5); NEUT% 54.5 % (42.2-75.2); PLT 296 X1000 (130-400); RBC 3.71 XMIL (4.2-5.4); WBC 6.36 X1000 (4.8-10.8)
[2019-03-26 20:04] LABS: INR 0.94; PROTIME 13.3 Seconds (11.0-16.0); PTT 29.4 Seconds (22.3-41.8)
--- NOTE | 2019-03-26 20:08 | Diag Imaging Result Doc PS360 ---
EXAM: CHEST-PORTABLE 03/26/2019 HISTORY: ams TECHNIQUE: AP supine portable at 1933 COMMENT: The inspiration is suboptimal. There is retrocardiac opacity in the left lower lobe. There are no previous studies. IMPRESSION: Atelectasis versus pneumonia left lower lobe. Electronically signed by Matthew Lan 03/26/2019 8:05 PM
[2019-03-26] MEDS ORDERED: NS 1,000 ML IV ONE ×3 (20:16→21:14)
[2019-03-26 20:17] LABS: AGAP 7; ALB/GLOB RATIO 1.4; ALBUMIN 2.6 g/dL (3.5-5.0); ALKALINE PHOSPHATASE 108 U/L (32-104); BUN 7 mg/dL (8-22); CALCIUM 7.7 mg/dL (8.8-10.2); CHLORIDE 109 mmol/L (98-107); CK PROFILE 48 U/L (24-173); COSMO 278; CREATININE 0.4 mg/dL (0.5-0.9); ESTIMATED GFR > 60; GLUCOSE 84 mg/dL (70-104); GOT 40 U/L (10-30); GPT 83 U/L (10-36); LIPASE 24 U/L (13-60); POTASSIUM 3.7 mmol/L (3.5-5.1); SODIUM 141 mmol/L (136-145); TCO2 25 mmol/L (25-35); TOTAL BILIRUBIN < 0.15 mg/dL (0.20-1.00); TOTAL PROTEIN 4.4 g/dL (6.3-8.3)
--- NOTE | 2019-03-26 20:48 | Diag Imaging Result Doc PS360 ---
EXAM: CT HEAD W/O CONTRAST 03/26/2019 HISTORY: ams TECHNIQUE: This exam was performed using automated exposure control, adjustment of mA or kV according to patient size, and/or use of iterative reconstruction technique. COMMENT: There is no evidence of mass effect, bleed, or abnormal extra-axial fluid collection. There is some questionable hyperdensity of the basal ganglia and thalami. This may be seen in hypercalcemic glycemia, but is a nonspecific finding. The visualized paranasal sinuses are clear. The calvarium is intact. IMPRESSION: Questionable basal ganglia and thalamic hyperdensity. Otherwise no evidence of acute disease. Electronically signed by Matthew Lan 03/26/2019 8:46 PM
[2019-03-26] MEDS ORDERED: AMIDATE ONE (20:56)
[2019-03-26] MEDS ORDERED: QUELICIN ONE (20:56)
[2019-03-26] MEDS ORDERED: DIPRIVAN 1% 1,000 MG/100 ML BOTTLE ONE (21:11)
[2019-03-26] MEDS ORDERED: DIPRIVAN 1% ONE (21:13)
--- NOTE | 2019-03-26 21:13 | Diag Imaging Result Doc PS360 ---
EXAM: CHEST/ABD TUBE PLACEMENT 03/26/2019 HISTORY: INTUBATION TECHNIQUE: AP portable at 2103 COMMENT: There is an endotracheal tube with its tip in the orifice of the right mainstem bronchus. There is some slightly increased opacity over the right base compared to the previous study of this date at 1933. IMPRESSION: Slightly worsened atelectasis right lower lobe. Atelectasis versus pneumonia left lower lobe. Endotracheal tube in the right mainstem bronchus. Electronically signed by Matthew Lan 03/26/2019 9:11 PM
[2019-03-26] MEDS ORDERED: QUELICIN IV ONE (21:15)
[2019-03-26] MEDS ORDERED: DIPRIVAN 1% IV ONE (21:15)
[2019-03-26] MEDS ORDERED: DIPRIVAN 1% 1,000 MG/100 ML BOTTLE IV SCH (21:30)
[2019-03-26] MEDS ORDERED: FENTANYL IV ONE (22:03)
[2019-03-26] MEDS ORDERED: FENTANYL ONE (22:08)
[2019-03-26 22:28] LABS: ACETAMINOPHEN < 1.2 ug/mL (10-30); SALICYLATES < 3.00 mg/dL (3-10)
--- NOTE | 2019-03-26 23:56 | HISTORY AND PHYSICAL ---
REASON FOR ADMISSION: Found unresponsive at home. MS. BURNS: Ms. Estela Holt is a 50-year-old with past medical history of peripheral neuropathy, depression, hypertension, and reflux disease. Up until about 4 p.m. today, she was able to converse constructively with her . He said he got back from work and she was sleeping. He woke her up and they had a brief meaningful discussion, then he went out only to return at 6 p.m. When he returned, he went to wake her up to ask the something, but he was unable to arouse her. He then called EMS, who came in and tried a series of maneuvers to arouse her, but she did not respond. She was then brought to the ER, where initially she was able to maintain the airway, but subsequently her end-tidal CO2 started to rise and she required intubation. Currently, the patient is still under sedation from propofol. The denies any blood from her mouth, fecal or urinary incontinence. He is not aware that she has skipped any of her medications, but did say that 4 days ago she was vomiting blood clots and went to [facility], where they did not find any objective course for her vomiting, and he mentioned that she may have had gastritis. He denies any diaphoresis. He denies the patient having any other complaints during the course of the day. He did also say that 1 of her best friends today, but when I asked him if his had any suicide ideations or was particularly close to the friend, he said no. Otherwise, review of system was limited due to patient's current condition. ALLERGIES: Morphine. HOME MEDICATION: List has not been reconciled. But up until this year she was taking trazodone, Mirapex, primidone, Seroquel, BuSpar, Effexor, Robaxin. She was also taking buprenorphine and naloxone sublingual tablets. SURGICAL HISTORY: Appendectomy, hysterectomy, cholecystectomy, carpal tunnel surgery, bilateral shoulder surgery, and back surgery. SOCIAL HISTORY: Thirty pack year history of smoking. No alcohol or drug use per records. FAMILY HISTORY: says family history has nobody with diabetes. Positive family history for coronary artery disease. LAB WORK: Noted. White count 6000, H H 10 and 32, platelets 296,000. BUN 7, creatinine 0.6. Calcium 7.7, but albumin of 2.6, AST 40, ALT 83, alkaline phosphatase 108, lactate 0.5. PT and PTT is normal. Salicylates and acetaminophen all normal. Positive barbiturates. Urinalysis is clear with to gravity of 1.003. Blood gas pH 7.36, pCO2 of 44, PO2 of 305, and this was on non- rebreather at that time. Chest film, suboptimal film with atelectasis versus pneumonia of left lower lobes. Head CT showed questionable basal ganglia and thalamic hypodensity. PHYSICAL EXAMINATION: GENERAL: Sedated, middle-aged, overweight woman who when sternal rub is applied moves all extremities and grimaces. VITAL SIGNS: Temperature is 96 degrees, pulse is 64, respirations 18, temperature is 117/76. HEENT: Head is normocephalic, atraumatic. Eyes are slightly miotic but reactive to light. She is anicteric and mildly pale. ENT: She has an NG tube and ET tube in place. No signs of cyanosis noted. A lot of secretions in the ventilator circuitry. NECK: Supple. No JVD or carotid bruit. No thyromegaly. CHEST: Clear when auscultated with good air entry in the bases. CARDIOVASCULAR: First and sounds heard. No gallops, murmurs, rubs. Regular. ABDOMEN: Full, soft. No tenderness elicited, i.e. no grimacing noted. Bowel sounds are hypoactive, Rectal exam deferred at this time. EXTREMITIES: Distal pulses volumes are full, symmetrical, and regular. No edema, clubbing, or cyanosis. NEUROLOGICAL: Moves all extremities to pain equally. SKIN: Intact. No breakdown, lesion, erythema. MUSCULOSKELETAL: Grossly normal. ASSESSMENT: 1. Probable toxic encephalopathy. Cannot rule out underlying ischemic stroke. 2. Aspiration pneumonia. 3. Anemia, ? possible gastrointestinal bleed. 4. History of hypertension. PLAN: 1. Will withhold any potential neurotoxic medication which the patient was taking quite a substantial amount. The CT scan findings are somewhat equivocal, but I will proceed with an MRI to rule out an overt CVA or intracranial mass. 2. Will continue supportive care with fluids, airway support via the ventilator, and DVT prophylaxis using SCDs as opposed to Lovenox in view of the patient's not too distant history of GI bleed. H2 blockers will also be provided to prevent potential recurrence of this. Hopefully with withholding some of these medications, patient's sensorium will improve. 3. We will monitor H H closely to ensure patient has not had a precipitous drop in her hematocrit based on the recent history of hematemesis. The patient's last hematocrit was 35, today it is 32. CRITICAL CARE TIME: On this patient was estimated to be 40 minutes. cc: MD Garfield Rebollar MD MTDD
[2019-03-27] MEDS ORDERED: TYLENOL PO PRN (00:06)
[2019-03-27] MEDS ORDERED: ZOFRAN IV PRN (00:06)
[2019-03-27] MEDS ORDERED: PEPCID IV SCH (00:06)
[2019-03-27] MEDS ORDERED: SODIUM CHLORIDE 0.9% INJ ONE (00:06)
--- NOTE | 2019-03-27 00:06 | HISTORY AND PHYSICAL ---
NO DICTATION cc: Lynn Soto MD
[2019-03-27] MEDS: ZOSYN 3.375 GM in NS 50 ML IV SCH ×2 (00:37→05:31)
[2019-03-27 00:38] LABS: RETIC% 0.93 % (0.8-2.1); RETIC-HE 35.4 PG (28.2-36.6)
[2019-03-27] MEDS: NS 1,000 ML IV SCH ×2 (00:38→09:27)
[2019-03-27] MEDS: DIPRIVAN 1% 1,000 MG/100 ML BOTTLE IV SCH ×4 (01:58→21:30)
[2019-03-27 02:46] LABS: HEMATOCRIT 35.9 % (37.0-47.0); HEMOGLOBIN 11.6 g/dL (12.0-16.0)
[2019-03-27 03:09] LABS: AGAP 10; BUN 6 mg/dL (8-22); CALCIUM 8.3 mg/dL (8.8-10.2); CHLORIDE 108 mmol/L (98-107); COSMO 278; CREATININE 0.5 mg/dL (0.5-0.9); ESTIMATED GFR > 60; GLUCOSE 84 mg/dL (70-104); POTASSIUM 3.5 mmol/L (3.5-5.1); SODIUM 141 mmol/L (136-145); TCO2 23 mmol/L (25-35)
[2019-03-27] MEDS: DUONEB (A & A) INH SCH ×4 (03:36→21:13)
[2019-03-27 04:59] LABS: ALLEN TEST YES; BE -0.9 mmoll (-3.0-3.0); BLOOD TYPE ARTERIAL; HCO3-(ACT) 24.2 mmoll (20.0-26.0); METHB 1.1 % (0.0-1.5); O2(CT) 14.5 mL/dL (15.0-23.0); O2HB 96.7 % (95.0-99.0); PCO2(98.6) 37 mmHg (35-45); PO2(98.6) 121 mmHg (60-100); SAMPLE BLOOD; SAO2 98.8 % (95.0-100.0); SRATE 15 BPM; THB 10.5 g/dL (11.5-17.4); TVOL 450 mL; pH(98.6) 7.41 (7.35-7.45)
[2019-03-27 05:00] LABS: MODALITY VENTILATOR
[2019-03-27 06:17] LABS: BASO# 0.03 X1000 (0.0-0.2); BASO% 0.3 % (0.0-0.8); EOS# 0.16 X1000 (0.0-0.7); EOS% 1.7 % (0.0-10.0); HEMATOCRIT 36.7 % (37.0-47.0); HEMOGLOBIN 11.7 g/dL (12.0-16.0); IMM GRAN# 0.02 X1000 (0.0-0.04); IMM GRAN% 0.2 % (0.0-0.5); LYMPH# 3.31 X1000 (1.2-3.4); LYMPH% 35.9 % (20.5-51.1); MCHC 31.9 g/dL (33-37); MCV 87.8 FL (81-99); MONO# 0.73 X1000 (0.11-0.59); MONO% 7.9 % (1.7-9.3); MPV 10.7 FL (7.4-10.4); NEUT# 4.96 X1000 (1.4-6.5); PLT 318 X1000 (130-400); RBC 4.18 XMIL (4.2-5.4); RDW 16.4 % (11.5-14.5); WBC 9.21 X1000 (4.8-10.8)
--- NOTE | 2019-03-27 06:56 | Diag Imaging Result Doc PS360 ---
CT ABD/PELVIS W/IV CONT ONLY - 03/26/2019 INDICATION: GI bleed COMPARISON: 08/19/2015 FINDINGS: There are dense infiltrates in both lower lobes with air bronchograms. No significant pleural effusion. Heart size is normal with no pericardial effusion. Stable gastric bypass changes. There is periportal edema throughout the liver which may indicate IV hydration or fluid abnormalities. Stable cholecystectomy changes. Stable appendectomy changes. There is moderate constipation. No bowel obstruction or inflammation. The pancreas, spleen, adrenals, and kidneys are normal. Gaitan catheter in the urinary bladder. Uterus is absent. Rectum is normal. There are surgical changes of the lower lumbar spine and right iliac wing. There are moderate degenerative changes of the spine. No acute or suspicious bony lesion. IMPRESSION: 1. Constipation. 2. Dense bilateral lower lobe pneumonia or aspiration. This exam was performed using automated exposure control, adjustment of mA or kV according to patient size, and/or use of iterative reconstruction technique Electronically signed by Phoenix Clemens 03/27/2019 6:54 AM
--- NOTE | 2019-03-27 07:19 | Diag Imaging Result Doc PS360 ---
EXAM: CHEST-PORTABLE 03/27/2019 HISTORY: ventilator TECHNIQUE: AP portable at 0026. COMMENT: There is an endotracheal tube with its tip slightly above the sofía. There is increasing volume loss and opacification in the right middle lobe compared to the previous study at 2103. There is mild retrocardiac opacity. IMPRESSION: Atelectasis versus pneumonia particularly in the right middle lobe. Electronically signed by Matthew Lan 03/27/2019 7:17 AM
--- NOTE | 2019-03-27 08:49 | EKG Report ---
Test Performed on : 03/26/2019 7:18:56 PM Test Reason : ED. No order in [place] Blood Pressure : / mmHG Vent. Rate : 068 BPM Atrial Rate : 068 BPM P-R Int : 202 ms QRS Dur : 088 ms QT Int : 458 ms P-R-T Axes : 063 -25 023 degrees QTc Int : 487 ms Sinus rhythm. with occasional premature ventricular complexes. Otherwise normal ECG No previous ECGs available Unconfirmed Result
[2019-03-27] MEDS: FENTANYL IV PRN ×2 (09:27→16:43)
[2019-03-27] MEDS ORDERED: SODIUM CHLORIDE 0.9% INJ SCH (10:30)
[2019-03-27] MEDS: LOVENOX SUBQ SCH ×2 (11:22→11:29)
[2019-03-27] MEDS: ZYVOX 600 MG/D5W 600 MG/300 ML IVPB IV SCH ×2 (11:23→22:43)
[2019-03-27] MEDS: MAXIPIME 2 GM in NS 100 ML IV SCH ×2 (11:23→22:43)
--- NOTE | 2019-03-27 19:20 | PROGRESS NOTE ---
DATE: 03/27/2019 SUBJECTIVE: The patient is currently on the ventilator. No acute events noted overnight. OBJECTIVE: Vital Signs: Temperature 98.6, blood pressure 87/60, heart rate 55, respirations 15, O2 saturation 99% on mechanical ventilator. General: This is a chronically ill-appearing, elderly female lying in bed in no acute distress. Heart: S1, S2. Normal. Bradycardic. Lungs: Equal air entry bilaterally. Abdomen: Positive bowel sounds. Soft, nontender, nondistended. Extremities: No edema, no cyanosis. Neurologic: The patient is currently sedated. LABS: White blood cell count 9.2, hemoglobin 11, hematocrit 35, platelets 318. Sodium 141, potassium 3.5, chloride 108, CO2 23, BUN 6, creatinine 0.5, glucose 84. Chest x-ray shows atelectasis versus pneumonia. ASSESSMENT AND PLAN: 1. Acute hypoxemic respiratory failure. Continue ventilator support as directed by the housekeeping staff. 2. Pneumonia. Continue with broad-spectrum antibiotic therapy and bronchodilator therapy. 3. Hematemesis. The patient's mother states that the patient has been having episodes of hematemesis at home. Will start IV Protonix and consult with Gastroenterology. 4. Metabolic encephalopathy. The patient is currently sedated. We will monitor her mental status closely. Her head CT was unremarkable. 5. Deep vein thrombosis prophylaxis. We will continue with sequential compression devices. Will withhold heparin due to the patient's recent history of gastrointestinal bleeding. cc: Michelle Moffett MD
--- NOTE | 2019-03-27 19:39 | CONSULTATION ---
DATE OF CONSULTATION: 03/27/2019 REQUESTING PROVIDER: Dr. Michelle Moffett. REASON FOR CONSULTATION: Acute respiratory failure. DELETED!!! Dictated by MARIA ESTHRE Johnston for Lety Ulloa MD cc: MARIA ESTHER Johnston MD [facility]
--- NOTE | 2019-03-27 20:17 | CONSULTATION ---
DATE OF CONSULTATION: 03/27/2019 REQUESTING PROVIDER: Dr. Michelle Moffett. REASON FOR CONSULTATION: Acute respiratory failure. HISTORY OF PRESENT ILLNESS: This is a 50-year-old female with a medical history of peripheral neuropathy, depression, hypertension, gastric acid reflux disease, and sleep apnea. She presented to the ER yesterday via EMS after the family was unable to arouse her. Soon after arrival to the ER, she was intubated. Initial workup revealed probable toxic encephalopathy, aspiration pneumonia and anemia. She has been admitted to the ICU for further evaluation and management. The patient currently is still intubated and sedated. The patient's and the patient's mother are at the bedside. The patient's mother reported that patient went to visit her friend yesterday morning and she found her friend in her apartment. She came back home later and was apparently upset as she felt that it was her fault for her friend's . She went to bed after talking to her mom. Later, her mother went to check on her and she was sleeping in bed, but easy to be aroused. At about 6pm, the patient's came back home from work and was unable to arouse her. The patient's mother also reported that the patient has been throwing up almost daily for a month and she apparently did not go to see any doctor. The patient's mother also reported that the patient has intermittent sinus headache which apparently is pretty regular to the patient. Yesterday morning, the patient did complain of chills and low fever. PAST MEDICAL HISTORY: 1. Peripheral neuropathy. 2. Depression. The patient has been in the [facility] before. 3. Hypertension. 4. Gastroesophageal reflux disease. 5. Sleep apnea. PAST SURGICAL HISTORY: 1. Appendectomy. 2. Hysterectomy. 3. Cholecystectomy. 4. Carpal tunnel surgery. 5. Bilateral shoulder surgery. 6. Back surgery. 7. Gastric bypass. SOCIAL HISTORY: The patient in lives at home with her and her mother. She has a history of depression. She smokes daily about 1 pack per day. She has no history of alcohol or illicit drug use. FAMILY HISTORY: Positive for coronary artery disease. ALLERGIES: Morphine. REVIEW OF SYSTEMS: Unable to be obtained. PHYSICAL EXAMINATION: Vital Signs: T 98.1 degrees, blood pressure 111/73, pulse 63, respiratory rate 15, oxygen saturation 100% on AC mechanical ventilator with spontaneous rate 15, FiO2 40%, tidal volume 450, and PEEP 5. General Appearance: Resting in bed, easy to be aroused. Opened eyes twice during my assessment. Complaining of pain on chest. HEENT: Atraumatic. Trachea is midline. ET tube in place. Mucosa pink and slightly dry. Respiratory: Respirations even and unlabored. Symmetrical excursion. Clear to auscultation. Cardiovascular: Regular rate and rhythm. Gastrointestinal: Bowel sounds normoactive in all 4 quadrants. Soft, nondistended. Extremities: No pedal edema. No cyanosis. No clubbing. Dorsalis pedis 2+ bilaterally. Neurologic: Lethargic on sedation with Diprivan drip. Able to be aroused. LAB DATA: White blood cell 9.21, hemoglobin 11.7, hematocrit 36.7, platelets 318,000. Sodium 141, potassium 3.5, chloride 108, carbon dioxide 23, BUN 6, creatinine 0.5, and glucose 84. ABG, pH 7.41, pCO2 37, PO2 121, HC03 24.2, base excess -0.9 and oxyhemoglobin 96.7. IMAGING DATA: Chest x-ray revealed atelectasis versus pneumonia, particularly in the right middle lobe. ASSESSMENT: This is a 50-year-old female with a medical history of peripheral neuropathy, depression, hypertension, gastroesophageal reflux disease, and sleep apnea. She has been admitted to the ICU after family unable to arouse her yesterday afternoon. 1. Acute hypoxemic hypercapnic respiratory failure requiring intubation. 2. Altered mental status. 3. Aspiration pneumonia. 4. Tobacco abuse. PLAN: 1. Continue AC mechanical ventilator at this time and consider weaning trials tomorrow . 2. Continue antibiotic and bronchodilators. 3. Follow up with ABG, CBC, CMP, chest x-ray, blood culture and sputum culture. 4. Continue gastrointestinal and deep vein thrombosis prophylaxis. 5. Further recommendations pending hospital course. Thank you for the courtesy of this consult. Dictated by MARIA ESTHER Johnston for Lety Ulloa MD cc: MARIA ESTHER Johnston MD [facility]
--- NOTE | 2019-03-27 21:18 | GASTROENTEROLOGY CONSULTATION ---
DATE: 03/27/2019 REASON FOR CONSULTATION: Hematemesis. HISTORY OF PRESENT ILLNESS: This is a 50-year-old female who had onset of symptoms last week. The patient was brought in to the hospital on 03/26/2019 after her was unable to wake her up. The evening of her admission, she was fine until around 4 o'clock in the afternoon. Her had come in from work. His was asleep. He woke her up and she was alert and oriented. He left and came back several hours later, tried to wake her up and she was unresponsive, 911 was called. She was brought in to the emergency room. She had respiratory distress and had to be intubated. The patient is currently in intensive care unit. Patient is intubated. She is currently awake. She is following commands. She is writing notes on a note pad. Most of the information is obtained from the since patient is intubated with limited communication. She is mouthing words also. There are reports that she had episodes of vomiting blood last Sunday and . Apparently she went to [place] for evaluation. I do not have those records available. Patient states that she has seen Dr. Aguiar in the past. She reports actually have an appointment with him this month on 03/31. ALLERGIES: Morphine causing anaphylaxis. HOME MEDICATIONS: Aspirin 81 mg daily, BuSpar 15 mg twice a day, dicyclomine 1 tablet every 6 hours as needed, Pepcid 1 tablet every 12 hours, gabapentin 600 mg 3 times a day, Robaxin 750 mg 3 times a day, Protonix 40 mg daily, Mirapex every night, Prazosin 4 mg every night, primidone 75 mg every night, Phenergan every 6 hours as needed, Seroquel 300 mg every night, Carafate, Bactrim every 12 hours, Desyrel 200 mg every night, Effexor 150 mg daily. SOCIAL HISTORY: Positive for tobacco use. Denies alcohol use. REVIEW OF SYSTEMS: Per history of present illness. Currently limited because of patient's intubation on mechanical ventilation. Information is obtained from the . PHYSICAL EXAMINATION: Vital signs: Temperature 98.6 degrees, pulse 58, blood pressure 86/59. General: At the time of our evaluation, the patient was awake. She was mouthing sentences. She was writing on a note pad to help with review of systems. She was in no acute distress. HEENT: Intubated on mechanical ventilation. Nasogastric tube in place. Respiratory: Lung sounds coarse. Cardiovascular: Regular rate and rhythm. Abdomen: Soft. Positive bowel sounds. Nontender with palpation. Extremities: No lower extremity edema noted. Neurological: She is awake and alert. Despite being intubated on mechanical ventilation. LABORATORY: Hematology: WBC 9.21, hemoglobin 11.6, hematocrit 35.9, MCV 87.8, platelets 318,000. Coagulation: ProTime 13.3, INR 0.94, PTT 29.4. Chemistry: Sodium 141, potassium 3.5, chloride 108, CO2 of 23, BUN 6, creatinine 0.5, glucose 84, calcium 8.3. Iron 23, ferritin 14. Total bilirubin less than 0.15. AST 40, ALT 83, alkaline phosphatase 108, ammonia 21. Vitamin B12 is 783. Folate 12.9. TSH 1.20, amylase 24. Urinalysis negative. Toxicology positive for barbiturates. No alcohol detected. IMAGING: CT scan of the abdomen and pelvis showing constipation, dense bilateral lower lobe pneumonia or aspiration. Chest x-ray showed atelectasis versus pneumonia, particularly at the right middle lobe. Head CT showed questionable basal ganglia and thalamic hyperdensity; otherwise, no evidence of acute disease. ASSESSMENT AND PLAN: 1. Recent respiratory failure requiring mechanical ventilation. 2. Recent altered mental status change. 3. Recent hematemesis. PLAN: 1. Continue symptomatic treatment and supportive care. Continue proton pump inhibitor. Hopefully, the patient will be able to be extubated soon. Once her respiratory status is stable and she is stable enough to proceed with endoscopy would proceed with EGD for further evaluation of hematemesis. 2. Mild anemia currently stable. On admission hemoglobin and hematocrit was 10.4 and 32.5. Hemoglobin and hematocrit today 11.6 and 35.9. Monitor for any further active bleeding. Continue to monitor hemoglobin and hematocrit and transfuse packed red blood cells as needed. We will continue to follow during her hospital course and further plans will be made according to her progress. The patient was also seen and examined by Dr. Gerard. Thank you for this consultation. Dictated by MARIA ESTHER Cruz for Binh Gerard MD cc: MARIA ESTHER Moscoso MD [facility]
[2019-03-28] MEDS: NS 1,000 ML IV SCH ×3 (00:35→22:06)
[2019-03-28] MEDS: DIPRIVAN 1% 1,000 MG/100 ML BOTTLE IV SCH ×2 (02:16→06:48)
[2019-03-28] MEDS: DUONEB (A & A) INH SCH ×4 (03:00→21:15)
[2019-03-28] MEDS: FENTANYL IV PRN (03:29)
[2019-03-28 04:20] LABS: ALLEN TEST YES; BE -3.4 mmoll (-3.0-3.0); BLOOD TYPE ARTERIAL; HCO3-(ACT) 22.3 mmoll (20.0-26.0); METHB 0.2 % (0.0-1.5); O2(CT) 8.5 mL/dL (15.0-23.0); O2HB 98.2 % (95.0-99.0); PCO2(98.6) 41 mmHg (35-45); PO2(98.6) 104 mmHg (60-100); SAMPLE BLOOD; SAO2 99.8 % (95.0-100.0); SRATE 15 BPM; TVOL 450 mL; pH(98.6) 7.34 (7.35-7.45)
[2019-03-28 04:21] LABS: MODALITY VENTILATOR
[2019-03-28 05:09] LABS: BASO# 0.03 X1000 (0.0-0.2); BASO% 0.3 % (0.0-0.8); EOS# 0.21 X1000 (0.0-0.7); EOS% 1.9 % (0.0-10.0); HEMATOCRIT 35.2 % (37.0-47.0); HEMOGLOBIN 11.4 g/dL (12.0-16.0); IMM GRAN# 0.02 X1000 (0.0-0.04); IMM GRAN% 0.2 % (0.0-0.5); LYMPH# 3.33 X1000 (1.2-3.4); LYMPH% 30.6 % (20.5-51.1); MCH 28.3 PG (27-31); MCHC 32.4 g/dL (33-37); MCV 87.3 FL (81-99); MONO# 0.96 X1000 (0.11-0.59); MONO% 8.8 % (1.7-9.3); MPV 11.6 FL (7.4-10.4); NEUT# 6.34 X1000 (1.4-6.5); NEUT% 58.2 % (42.2-75.2); PLT 307 X1000 (130-400); RBC 4.03 XMIL (4.2-5.4); RDW 16.3 % (11.5-14.5); WBC 10.89 X1000 (4.8-10.8)
[2019-03-28 05:38] LABS: AGAP 11; ALBUMIN 2.9 g/dL (3.5-5.0); ALKALINE PHOSPHATASE 108 U/L (32-104); BUN 7 mg/dL (8-22); CALCIUM 8.1 mg/dL (8.8-10.2); CHLORIDE 106 mmol/L (98-107); COSMO 273; CREATININE 0.5 mg/dL (0.5-0.9); ESTIMATED GFR > 60; GLUCOSE 79 mg/dL (70-104); GOT 22 U/L (10-30); GPT 58 U/L (10-36); SODIUM 138 mmol/L (136-145); TCO2 21 mmol/L (25-35); TOTAL BILIRUBIN 0.18 mg/dL (0.20-1.00); TOTAL PROTEIN 5.7 g/dL (6.3-8.3)
[2019-03-28] MEDS: PROTONIX IV SCH (06:05)
--- NOTE | 2019-03-28 06:33 | Diag Imaging Result Doc PS360 ---
EXAM: CHEST-PORTABLE HISTORY: pneumonia TECHNIQUE: Portable chest single view COMPARISON: 03/27/2019 FINDINGS: There is an endotracheal tube 1 cm above the sofía. This should probably be pulled back 2 cm. There is atelectasis or a tiny infiltrate in the left lung base. Interval clearing in the right base. No cardiomegaly. No pulmonary edema. IMPRESSION: 1.The endotracheal tube should probably be pulled back 1 to 2 cm 2.Left basilar atelectasis versus a small infiltrate Electronically signed by Noman Altamirano 03/28/2019 6:31 AM
[2019-03-28] MEDS ORDERED: POTASSIUM CHLORIDE 60 MEQ in NS 500 ML IV ONE (07:57)
[2019-03-28] MEDS ORDERED: MAGNESIUM SULFATE 2 GM/S.W.I. 2 GM/50 ML IVPB IV ONE (08:21)
--- NOTE | 2019-03-28 09:21 | PROGRESS NOTE ---
DATE: 03/28/2019 SUBJECTIVE: The patient is resting comfortably. She is currently sedated on the ventilator. However, she does awaken when her name is called. No acute events noted overnight. OBJECTIVE: Vital Signs: Temperature 98.4 degrees, blood pressure 133/81, heart rate 59, respirations 15 and O2 saturations 100% on the mechanical ventilator. Intake 3.6 L, output 1.8 L. General: This is a chronically ill-appearing elderly female currently sedated on the ventilator. HEENT: Head normocephalic and atraumatic. Heart: S1, S2 normal. Regular rate and rhythm. Lungs: Equal air entry bilaterally. Diminished breath sounds at the bases. No wheezing. No rales. Abdomen: Positive bowel sounds. Soft, nontender, and nondistended. Extremities: No edema. No cyanosis. Neurologic: The patient is currently sedated on the ventilator, but does follow commands. LABORATORY: White blood cell count 10, hemoglobin 11, hematocrit 35, and platelets 307,000. ABG pH 7.34, pCO2 41, PO2 104, bicarb 22. Sodium 138, potassium 3, chloride 106, CO2 21, BUN 7, creatinine 0.5, glucose 79, magnesium 1.6, calcium 8.1, AST 22, ALT 58, alkaline phosphatase 108, and albumin 2.9. Chest x-ray shows left basilar atelectasis versus a small infiltrate. ASSESSMENT AND PLAN: 1. Acute hypoxemic respiratory failure. Continue with ventilator support as directed by the dsp engineer. Weaning trial as per the dsp engineer. 2. Pneumonia. Continue with IV antibiotic therapy and bronchodilator therapy. 3. Hematemesis. The patient is on IV Protonix. We will await further recommendations from GI. 4. Metabolic encephalopathy. The patient does follow commands. We will continue to monitor for improvement. 5. Anemia. Hemoglobin and hematocrit is currently stable. 6. Hypomagnesemia. Continue on magnesium sulfate replacement. 7. Deep venous thrombosis prophylaxis. The patient is currently on SCD's. cc: Michelle Moffett MD
[2019-03-28] MEDS ORDERED: HALDOL IV ONE (10:03)
[2019-03-28] MEDS: ZYVOX 600 MG/D5W 600 MG/300 ML IVPB IV SCH ×2 (11:02→22:07)
[2019-03-28] MEDS: MAXIPIME 2 GM in NS 100 ML IV SCH ×2 (11:02→22:06)
[2019-03-28 11:30] LABS: ALLEN TEST YES; BE -3.1 mmoll (-3.0-3.0); BLOOD TYPE ARTERIAL; HCO3-(ACT) 22.5 mmoll (20.0-26.0); METHB 0.7 % (0.0-1.5); O2(CT) 15.8 mL/dL (15.0-23.0); O2HB 96.3 % (95.0-99.0); PCO2(98.6) 34 mmHg (35-45); PO2(98.6) 91 mmHg (60-100); SAMPLE BLOOD; THB 11.6 g/dL (11.5-17.4)
[2019-03-28 11:31] LABS: MODALITY VENTILATOR
[2019-03-29] MEDS: DUONEB (A & A) INH SCH ×4 (05:02→22:39)
[2019-03-29 05:04] LABS: ALLEN TEST YES; BE 1.9 mmoll (-3.0-3.0); BLOOD TYPE ARTERIAL; HCO3-(ACT) 26.4 mmoll (20.0-26.0); METHB 0.6 % (0.0-1.5); O2(CT) 15.7 mL/dL (15.0-23.0); O2HB 94.9 % (95.0-99.0); PCO2(98.6) 36 mmHg (35-45); PO2(98.6) 71 mmHg (60-100); SAMPLE BLOOD; SAO2 96.7 % (95.0-100.0); THB 11.7 g/dL (11.5-17.4); pH(98.6) 7.46 (7.35-7.45)
[2019-03-29 05:05] LABS: MODALITY ROOM AIR
[2019-03-29] MEDS: PROTONIX IV SCH (06:02)
[2019-03-29] MEDS: NS 1,000 ML IV SCH (06:02)
[2019-03-29 06:40] LABS: BASO# 0.03 X1000 (0.0-0.2); BASO% 0.2 % (0.0-0.8); EOS# 0.27 X1000 (0.0-0.7); EOS% 2.2 % (0.0-10.0); HEMATOCRIT 33.1 % (37.0-47.0); HEMOGLOBIN 10.7 g/dL (12.0-16.0); IMM GRAN# 0.02 X1000 (0.0-0.04); IMM GRAN% 0.2 % (0.0-0.5); LYMPH# 2.99 X1000 (1.2-3.4); LYMPH% 24.6 % (20.5-51.1); MCH 27.9 PG (27-31); MCHC 32.3 g/dL (33-37); MCV 86.4 FL (81-99); MONO# 1.09 X1000 (0.11-0.59); MPV 11.7 FL (7.4-10.4); NEUT# 7.74 X1000 (1.4-6.5); NEUT% 63.8 % (42.2-75.2); PLT 280 X1000 (130-400); RBC 3.83 XMIL (4.2-5.4); WBC 12.14 X1000 (4.8-10.8)
[2019-03-29 06:56] LABS: AGAP 12; ALB/GLOB RATIO 0.9; ALBUMIN 2.7 g/dL (3.5-5.0); ALKALINE PHOSPHATASE 101 U/L (32-104); BUN 3 mg/dL (8-22); CHLORIDE 105 mmol/L (98-107); COSMO 274; CREATININE 0.4 mg/dL (0.5-0.9); ESTIMATED GFR > 60; GLUCOSE 69 mg/dL (70-104); GOT 16 U/L (10-30); GPT 42 U/L (10-36); POTASSIUM 3.3 mmol/L (3.5-5.1); SODIUM 140 mmol/L (136-145); TCO2 23 mmol/L (25-35); TOTAL BILIRUBIN 0.37 mg/dL (0.20-1.00); TOTAL PROTEIN 5.6 g/dL (6.3-8.3)
--- NOTE | 2019-03-29 07:10 | Diag Imaging Result Doc PS360 ---
EXAM: CHEST-PORTABLE HISTORY: pneumonia TECHNIQUE: Chest single view COMPARISON: 03/28/2019 FINDINGS: The lungs are well expanded. The heart is not enlarged. The vessels are not distended. There are small right basilar infiltrates. No effusion identified. Interval removal of the endotracheal tube. Interval clearing in the left base. IMPRESSION: Right basilar pneumonia Electronically signed by Noman Altamirano 03/29/2019 7:08 AM
[2019-03-29] MEDS ORDERED: POTASSIUM CHLORIDE 60 MEQ in NS 500 ML IV ONE (07:33)
[2019-03-29] MEDS: MAXIPIME 2 GM in NS 100 ML IV SCH ×3 (10:16→21:59)
[2019-03-29] MEDS: ZYVOX 600 MG/D5W 600 MG/300 ML IVPB IV SCH ×3 (10:17→22:00)
--- NOTE | 2019-03-29 12:49 | PROGRESS NOTE ---
DATE: 03/29/2019 SUBJECTIVE: The patient is awake and alert. She is on room air. She states that she is hungry. OBJECTIVE: Vital signs: Temperature is 98.4, blood pressure 127/65, heart rate 69, respirations 18, O2 saturation is 96% on room air. General: This is an elderly female lying in bed in no acute distress. Heart: S1 and S2 normal. Regular rate and rhythm. Lungs: Equal air entry bilaterally. No crackles. No rales. Abdomen: Positive bowel sounds. Soft, nontender and nondistended. Extremities: No edema. No cyanosis. Neurologic: The patient is alert and oriented x4. DIAGNOSTIC DATA: White blood cell count is 12, hemoglobin 10, hematocrit 33, platelets 280. Sodium 140, potassium 3.3, chloride 105, CO2 is 23, BUN is 3, creatinine 0.4, glucose 69, magnesium 1.8, albumin 2.7. Chest x-ray shows right basilar pneumonia. ASSESSMENT AND PLAN: 1. Acute hypoxemic respiratory failure, status post extubation, resolved. The patient is now on room air. 2. Pneumonia. Continue with antibiotics and bronchodilator therapy. 3. Hematemesis. GI is following. The patient states that she is followed by Dr. Aguiar and is scheduled to see him on Sunday in followup. 4. Metabolic encephalopathy, resolved. 5. Hypokalemia. We will replace the patient's potassium. 6. DVT. Continue on SCDs. 7. Disposition. The patient is stable for transfer to the Medical Floor. cc: Michelle Moffett MD
--- NOTE | 2019-03-29 17:24 | GASTROENTEROLOGY PROGRESS NOTE ---
DATE: 03/29/2019 SUBJECTIVE: The patient is feeling better. She was extubated yesterday. She is still in the ICU but I believe there are plans for her to be transferred to a regular room. There has been no further episodes of nausea, vomiting or hematemesis. OBJECTIVE: Vital Signs: Temperature 98.4 degrees, pulse 69, respirations 18, blood pressure 125/65. General: The patient is awake and alert. No acute distress. LABORATORY DATA: Hematology: WBC 12.14, hemoglobin 10.7, hematocrit 33.1, MCV 86.4, platelet 280,000. Chemistry: Sodium 140, potassium 3.3, chloride 105, CO2 of 23, BUN 3, creatinine 0.4, glucose 69, calcium 8.0, total bilirubin 0.37, AST 16, ALT 42, alkaline phosphatase 101. ASSESSMENT AND PLAN: 1. Acute respiratory failure. The patient was on a ventilator, now extubated. 2. Pneumonia on antibiotics. 3. Recent hematemesis. Continue proton pump inhibitor. 4. Altered mental status has improved. 5. Anemia is stable. She has had no further evidence of active bleeding since admission. She is a patient of Dr. Aguiar's and actually has an appointment with him next week in the office. We will continue to follow during her hospital course. Further plans to be made according to progress. If she has active bleeding she may need esophagogastroduodenoscopy while in the hospital. Otherwise if discharged she can follow up with Dr. Aguiar as scheduled. I have discussed this case with Dr. Geradr. Dictated by MARIA ESTHER Cruz for Binh eGrard MD cc: MARIA ESTHER Moscoso MD
[2019-03-30] MEDS: DUONEB (A & A) INH SCH ×2 (03:19→10:17)
[2019-03-30] MEDS ORDERED: PROTONIX PO SCH (07:00)
[2019-03-30 07:08] LABS: BASO# 0.04 X1000 (0.0-0.2); BASO% 0.3 % (0.0-0.8); EOS# 0.32 X1000 (0.0-0.7); EOS% 2.4 % (0.0-10.0); HEMATOCRIT 34.3 % (37.0-47.0); HEMOGLOBIN 11.2 g/dL (12.0-16.0); IMM GRAN# 0.03 X1000 (0.0-0.04); IMM GRAN% 0.2 % (0.0-0.5); LYMPH# 2.57 X1000 (1.2-3.4); LYMPH% 19.4 % (20.5-51.1); MCH 27.9 PG (27-31); MCHC 32.7 g/dL (33-37); MCV 85.3 FL (81-99); MONO# 1.07 X1000 (0.11-0.59); MONO% 8.1 % (1.7-9.3); NEUT# 9.23 X1000 (1.4-6.5); NEUT% 69.6 % (42.2-75.2); PLT 325 X1000 (130-400); RBC 4.02 XMIL (4.2-5.4); RDW 15.8 % (11.5-14.5); WBC 13.26 X1000 (4.8-10.8)
[2019-03-30 07:20] VITALS: BP 121/68
[2019-03-30 07:37] LABS: AGAP 11; ALB/GLOB RATIO 1.1; ALBUMIN 3.2 g/dL (3.5-5.0); ALKALINE PHOSPHATASE 103 U/L (32-104); BUN 2 mg/dL (8-22); CALCIUM 8.7 mg/dL (8.8-10.2); CHLORIDE 106 mmol/L (98-107); COSMO 279; CREATININE 0.4 mg/dL (0.5-0.9); ESTIMATED GFR > 60; GLUCOSE 92 mg/dL (70-104); GOT 13 U/L (10-30); GPT 32 U/L (10-36); POTASSIUM 3.4 mmol/L (3.5-5.1); SODIUM 142 mmol/L (136-145); TCO2 25 mmol/L (25-35); TOTAL BILIRUBIN 0.34 mg/dL (0.20-1.00)
--- NOTE | 2019-03-30 08:30 | Diag Imaging Result Doc PS360 ---
EXAM: CHEST-PORTABLE - 03/30/2019 HISTORY: pneumonia TECHNIQUE: Portable chest COMPARISON: 03/29/2019 FINDINGS: Heart size is normal. There are skinfold artifacts at the lateral left base. There is mild prominence of basilar interstitial markings. There is no dense consolidation, substantial pleural effusion, or pneumothorax identified. IMPRESSION: Mild prominence of basilar interstitial markings. No dense consolidation. Electronically signed by Garfield Suazo 03/30/2019 8:28 AM
[2019-03-30] MEDS ORDERED: KLOR-CON PO ONE (10:20)
--- NOTE | 2019-04-07 20:25 | DISCHARGE SUMMARY ---
ADMISSION DATE: 03/27/2019 DISCHARGE DATE: 03/30/2019 FINAL DISCHARGE DIAGNOSES: 1. Acute hypoxemic respiratory failure. 2. Pneumonia. 3. Hematemesis. 4. Metabolic encephalopathy. 5. Hypokalemia. 6. Neuropathy. 7. Depression. 8. Peripheral neuropathy. CONSULTATIONS: 1. Pulmonary consultation, with Dr. Ulloa. 2. GI consultation, with Dr. Gerard. HOSPITAL COURSE: Ms. Holt is a 53-year-old female, with a history of multiple medical problems, who presented to the ER in respiratory failure. The patient was intubated and placed on the ventilator and transferred to the ICU. A chest x-ray was done that revealed pneumonia, so broad- spectrum antibiotics were also initiated in addition to bronchodilator therapy and ventilatory support, as directed by the wood machinist. The patient's family stated that the patient had been having hematemesis leading up to the admission, so GI was consulted. While intubated, the patient was placed on IV Protonix. The patient's respiratory status eventually improved and the patient was subsequently extubated. The blood cultures remained negative after 5 days and the sputum culture was also noted to be unremarkable. The patient was started on a diet which she tolerated without any difficulty, and she was transferred to the medical floor. She was also seen by Physical Therapy and was able to ambulate without any difficulty. The patient continued to improve clinically. A repeat chest x-ray was done that revealed no dense consolidation. The patient was ultimately cleared for discharge home on 03/30/2019. DISCHARGE MEDICATIONS: 1. Augmentin 875/125 one tablet oral twice a day. 2. Aspirin 81 mg p.o. daily. 3. BuSpar 50 mg oral twice a day. 4. Gabapentin 600 mg oral 3 times a day. 5. Robaxin 750 mg oral 3 times a day. 6. Protonix 40 mg p.o. daily. 7. Mirapex 1 mg oral at bedtime. 8. Primidone 75 mg oral at bedtime. 9. Seroquel 300 mg oral at bedtime. 10. Carafate 1 g oral before meals and at bedtime. 11. Trazodone 200 mg oral at bedtime. 12. Effexor 150 mg oral daily. DISCHARGE DIET: Regular diet. ACTIVITY: As tolerated. FOLLOWUP INSTRUCTIONS: The patient will need to follow up with Dr. Garfield Fam in 1 week. cc: MD Garfield Rome MD
--- NOTE | 2019-04-08 07:27 | PROVIDER DOCUMENTATION ---
This chart was entered by Diana Julio Scribe, acting as scribe for Fredrick Lees MD. HPI-Critical Care - General Chief Complaint: Unresponsive Stated Complaint: OVERDOSE Time Seen by Provider: 03/26/19 19:06 Patient arrived via EMS?: Yes Source: family (), EMS Unable to obtain history due to:: urgency Allergies/Adverse Reactions: Allergies Allergy/AdvReac Type Severity Reaction Status Date / Time morphine Allergy Severe ANAPHYLAXIS Verified 12/31/18 00:19 Home Medications: Home Medication List Medication Instructions Recorded Confirmed Last Taken Type Pantoprazole [Protonix] 40 mg PO DAILY@0700 02/05/18 03/26/19 12/30/18 History Pramipexole Di-HCl [Mirapex] 1 mg PO QHS 02/05/18 12/31/18 12/30/18 History Buspirone HCl [Buspar] 15 mg PO BID 12/31/18 03/26/19 12/30/18 History Gabapentin 600 mg PO TID 12/31/18 03/26/19 12/30/18 History Methocarbamol [Robaxin-750] 750 mg PO TID 12/31/18 12/31/18 12/30/18 History Primidone [Mysoline] 75 mg PO QHS 12/31/18 03/26/19 12/30/18 History Quetiapine Fumarate [Seroquel] 300 mg PO QHS 12/31/18 03/26/19 12/30/18 History Sucralfate [Carafate] 1 gm PO AC + HS 12/31/18 12/31/18 12/30/18 History Trazodone [Desyrel] 200 mg PO QHS 12/31/18 03/26/19 12/30/18 History Venlafaxine [Effexor] 150 mg PO DAILY 12/31/18 03/26/19 12/30/18 History Aspirin 81 mg PO DAILY #30 tab.chew 01/01/19 Unknown Rx Dicyclomine HCl 1 tab PO Q6H PRN 03/26/19 03/26/19 Unknown History Prazosin HCl 4 mg PO QHS 03/26/19 03/26/19 Unknown History Promethazine HCl 1 tab PO Q6H PRN 03/26/19 03/26/19 Unknown History Amoxicillin/Potassium Clav 1 ea PO BID #14 tab 03/30/19 Unknown Rx [Augmentin 875-125 Tablet] - History of Present Illness-Critical Care Nature of Presenting Problem: 53yof presents to ED by EMS cc unresponsive, possible drug overdose. EMS reports they gave 2 of Narcan and only had pupillary response. arrived at 2035 and reported his was last seen normal by her mother at 1200 today and when he came home from work she was in bed but did speak to him. reports pt received devastating news today. Pt has hx of HTN, CAD and anxiety. Onset/Duration: reports: 1-3 hours ago Timing: reports: still present EMS Initial Findings:: unresponsive Pre-hospital Treatment: Initiated oxygen, Initiated other (2 Narcan) Loss of Consciousness: still comatose Review of Systems - Adult - REVIEW OF SYSTEMS - ADULT ROS:: unobtainable per condition Constitutional: reports: no symptoms reported Eyes: reports: no symptoms reported Ears, Nose, Mouth & Throat: reports: no symptoms reported Cardiovascular: reports: no symptoms reported Respiratory: reports: no symptoms reported Gastrointestinal: reports: no symptoms reported Genitourinary: reports: no symptoms reported Musculoskeletal: reports: no symptoms reported Integumentary: reports: no symptoms reported Neurological: reports: no symptoms reported Psychiatric: reports: no symptoms reported Endocrine: reports: no symptoms reported Hematologic/Lymphatic: reports: no symptoms reported Allergic/Immunologic: reports: no symptoms reported All Other Systems: Reviewed and Negative Past History - Adult - PAST MEDICAL HISTORY-ADULT Review of Records: reports: Nursing Assessment Review, Medications Reviewed, Social history reviewed & non-contributory. Major Childhood Illnesses: reports: denies history Cardiovascular: reports: CAD, HTN, other (cardiac cath) Respiratory: reports: denies history Gastrointestinal: reports: denies history Obstetrical/Gynecological: reports: denies history Genitourinary: reports: denies history Musculoskeletal: reports: chronic pain, other (restless leg syndrome) Neurological: reports: denies history Psychiatric: reports: anxiety Endocrine/Immune: reports: denies history Other Conditions: reports: denies history - PRIOR SURGERIES/PROCEDURES Surgical/Procedure History: reports: appendectomy, cholecystectomy, hysterectomy , orthopedic (extremity) (right shoulder), gastric bypass - IMMUNIZATION STATUS Childhood Immunizations: UTD Flu Vaccine: See Nurse Assessment - FAMILY HISTORY Family History: CAD under 55yo (47 yr old female of 1st degree blood line) Physical Exam-General - PHYSICAL EXAM-ADULT Initial Vital Signs Reviewed: Yes - CONSTITUTIONAL General Appearance: severe distress, obtunded - EYES Eyes: other (mid sized, sluggish) - HEAD, EARS, NOSE, MOUTH & THROAT HENMT: normocephalic/atraumatic, moist mucous membranes, normal ENT inspection - NECK Neck: non-tender, full range of motion - RESPIRATORY Respiratory: lungs clear, decreased breath sounds - CARDIOVASCULAR Cardiovascular: normal peripheral pulses, regular rate, rhythm, no edema - GASTROINTESTINAL (ABDOMEN) Abdominal Exam: non tender, soft - MUSCULOSKELETAL Back Exam: normal inspection, no CVA tenderness Extremity: normal range of motion, non-tender, normal inspection - SKIN Integumentary: normal color, normal turgor, warm/dry - NEUROLOGIC Neurologic: other (not following commands, but moves all 4 extremities, responds to loud verbal stimuli) - PSYCHIATRIC Psych/Mental Status: other (not responding to questions) Progress - PLAN OF CARE/RESULTS Progress/Plan/Lab Results: Orders Category Date Time Status Admit [facility] Routine AdmDCTranf 03/27/19 00:06 Active Activity - Up with Assistance ORDERED Care 03/27/19 00:06 Completed Gaitan Cath Insertion ORDERED Care 03/26/19 21:48 Completed Intake and Output-Strict ORDERED Care 03/27/19 00:06 Active SCD/ARI Application [Apply Mechanical Device] [QM] Care 03/27/19 00:06 Active ORDERED Vital Signs Order Q 4-HR ASSESS Care 03/27/19 00:06 Active Z-Document. for Tele Applied ORDERED Care 03/27/19 00:06 Completed NPO Diet 03/27/19 00:06 Completed CHEST-PORTABLE [RAD] Routine Exams 03/27/19 00:06 Completed CHEST-PORTABLE [RAD] Stat Exams 03/26/19 19:17 Completed CHEST/ABD TUBE PLACEMENT [RAD] Stat Exams 03/26/19 20:[address] ABD/PELVIS W/IV CONT ONLY [CT] Stat Exams 03/26/19 23:[address] HEAD W/O CONTRAST [CT] Stat Exams 03/26/19 19:17 Completed ABG [RESP] Routine Lab 03/26/19 19:31 Completed ACETAMINOPHEN [TDM] Stat Lab 03/26/19 19:47 Completed ALCOHOL BLOOD Stat Lab 03/26/19 19:47 Completed AMMONIA [CHEM] Stat Lab 03/26/19 22:38 Completed BASIC METABOLIC PANEL [CHEM] Routine Lab 03/27/19 02:27 Completed CBC WITH DIFF [HEME] Routine Lab 03/27/19 06:00 Completed CBC WITH ELECTRONIC DIFF [HEME] Stat Lab 03/26/19 19:47 Completed CK PROFILE [SP CHEM] Stat Lab 03/26/19 19:47 Completed COMPREHENSIVE METABOLIC PANEL [CHEM] Stat Lab 03/26/19 19:47 Completed FERRITIN Routine Lab 03/27/19 02:27 Completed FOLATE Stat Lab 03/27/19 00:06 Completed HGB AND HCT [HEME] Routine Lab 03/27/19 02:27 Completed LACTATE, PLASMA [CHEM] Stat Lab 03/26/19 19:47 Completed LIPASE [CHEM] Stat Lab 03/26/19 19:47 Completed PROTIME WITH INR [COAG] Stat Lab 03/26/19 19:47 Completed PTT [COAG] Stat Lab 03/26/19 19:47 Completed RETIC COUNT [HEME] Stat Lab 03/27/19 00:06 Completed SALICYLATES [TDM] Stat Lab 03/26/19 19:47 Completed TOTAL IRON [CHEM] Stat Lab 03/27/19 00:06 Completed TSH Routine Lab 03/27/19 02:27 Completed URINALYSIS W/POSS RFLX CULT [URINALYSIS] Stat Lab 03/26/19 20:15 Completed URINE DRUG SCREEN Stat Lab 03/26/19 20:15 Completed VITAMIN B12 Stat Lab 03/27/19 00:06 Completed 0.9% Sodium Chloride Inj [Ns] 1,000 ml Med 03/26/19 19:11 Discontinued .ROUTE As directed 0.9% Sodium Chloride Inj [Ns] 1,000 ml Med 03/26/19 19:35 Discontinued .ROUTE As directed 0.9% Sodium Chloride Inj [Ns] 1,000 ml Med 03/26/19 21:00 Discontinued .ROUTE As directed 0.9% Sodium Chloride Inj [Ns] 1,000 ml Med 03/27/19 00:06 Discontinued IV 100 mls/hr 0.9% Sodium Chloride Inj [Ns] 1,000 ml Med 03/26/19 20:16 Discontinued IV 999 mls/hr 0.9% Sodium Chloride Inj [Ns] 1,000 ml Med 03/26/19 20:16 Discontinued IV 999 mls/hr 0.9% Sodium Chloride Inj [Ns] 1,000 ml Med 03/26/19 21:14 Discontinued IV 999 mls/hr Acetaminophen [Tylenol] Med 03/27/19 00:06 Discontinued 650 mg PO Q6H PRN PRN Albuterol 2.5MG/Ipratrop 0.5MG [Duoneb (A & A)] Med 03/27/19 04:00 Discontinued 3 ml INH RTQ6H Etomidate [Amidate] Med 03/26/19 20:56 Discontinued 40 mg .ROUTE .STK-MED ONE Famotidine [Pepcid] Med 03/27/19 00:06 Discontinued 20 mg IV Q12H Fentanyl Med 03/26/19 22:08 Discontinued 100 microgm .ROUTE .STK-MED ONE Fentanyl Med 03/26/19 22:03 Discontinued 25 microgm IV NOW ONE Fentanyl Med 03/27/19 00:06 Discontinued 25 microgm IV Q2H PRN PRN Ondansetron [Zofran] Med 03/27/19 00:06 Discontinued 4 mg IV Q4H PRN PRN Piperacillin/Tazobactam [Zosyn] 3.375 gm Med 03/27/19 00:06 Discontinued 0.9% Sodium Chloride Inj [Ns] 50 ml IV Q6H Propofol [Diprivan 1%] Med 03/26/19 21:13 Discontinued 200 mg .ROUTE .STK-MED ONE Propofol [Diprivan 1%] Med 03/26/19 21:15 Discontinued 50 mg IV STAT ONE Propofol [Diprivan 1%] Med 03/26/19 21:11 Discontinued 1,000 mg in 100 ml .ROUTE As directed Propofol [Diprivan 1%] Med 03/26/19 21:30 Discontinued 1,000 mg in 100 ml IV As Directed mls/hr Propofol [Diprivan 1%] Med 03/27/19 01:15 Discontinued 1,000 mg in 100 ml IV As Directed mls/hr Sodium Chloride 0.9% Med 03/27/19 00:06 Discontinued 5 - 10 ml INJ NOW ONE Succinylcholine [Quelicin] Med 03/26/19 21:15 Discontinued 100 mg IV NOW ONE Succinylcholine [Quelicin] Med 03/26/19 20:56 Discontinued 200 mg .ROUTE .STK-MED ONE Aerosol Treatments Routine Oth 03/27/19 00:06 Completed Aerosol Treatments Stat Oth 03/27/19 00:06 Completed Telemetry [OM.EQ] Routine Oth 03/27/19 00:06 Active Transfer/Admit Order [TRANSFER] Routine Transfer 03/26/19 22:36 Completed 1905-arrived in trauma room and pt had gag reflex, airway ok and responded to painful stimuli 2045-returned to trauma room because respirations too low and possible hyperkepnic 2053-gave 100mg of succinylcholine 2055-intubated pt with 7.5 tube and it was placed 23 at the lip Result Diagrams: 03/30/19 06:50 03/30/19 06:50 - REASSESSMENT Reassessment #1 Status: other (patient began to have worsening respiratory status. Will intubate) Reassessment Comment: initially, maintaining her airway, ETCO2 waveform monitored. - EKG 1 Time of EKG reading by physician:: 19:18 EKG Read and Signed by:: Fredrick Lees Rate: 68 Rhythm: sinus rhythm QRS: PVC's (occasional) ST Wave: normal - XRAY 1 XRAY: Bilateral XRAY Study: Chest Impression: See EMR Report (IMPRESSION: Atelectasis versus pneumonia left lower lobe. Electronically signed by Matthew Lan 03/26/2019 8:05 PM) - CT/MRI 1 CT Study: Head Impression: See EMR Report (IMPRESSION: Questionable basal ganglia and thalamic hyperdensity. Otherwise no evidence of acute disease. Electronically signed by Matthew Lan 03/26/2019 8:46 PM) Procedures - INTUBATION Time of Intubation: 20:56 Intubation Method: orotracheal Equipment: Glidescope Tube Size (cm): 7.5 Pretreated with 100% Oxygen?: Yes Breath Sounds after Intubation: equal Intubation Complications: no complications Vent Settings: See Respiratory Therapy Notes Departure - Departure Date of Disposition Decision: 03/26/19 Time of Disposition Decision: 00:06 DIAGNOSIS: Overdose Qualifiers: Encounter type: initial encounter Injury intent: undetermined intent Qualified Code(s): T50.904A - Poisoning by unspecified drugs, medicaments and biological substances, undetermined, initial encounter Respiratory failure Qualifiers: Chronicity: acute Respiratory failure complication: hypoxia and hypercapnia Qualified Code(s): J96.01 - Acute respiratory failure with hypoxia; J96.02 - Acute respiratory failure with hypercapnia Disposition: ADMITTED INPATIENT 09 Certified Medical Emergency: Emergent Condition: Critical - Critical Care Note This patient required my direct & personal management of CC.: Yes Total Time (mins): 62 Critical Care Statement: This patient required my direct personal management to treat or rule out processes, the absence of which, could potentiallly result in sudden, clinically significant life or limb threatening deterioration. Attestation - Physician/ SHEILA Attestation Patient care was provided by Advanced Practice Provider:: No The physician spent face to face time with patient:: Yes Advanced Practice Provider documentation review:: Supervising physician onsite and consulted in the evaluation and care of this patient. The physician did have a face to face encounter with the patient. This chart was documented by the indicated scribe, (Diana Julio Scribe) and accurately reflects the services I performed and decisions made by me, Fredrick Lees MD, as attested by the provider's signature.
== END 2019-03-30 11:51 | disposition home or self-care (01) | DRG 208 ==
LOC: ED 19:03 → SUATTDRO 03-27 01:37 → ICU 03-27 01:37 → 3N 03-30 01:42
PROVIDERS: ATTEND Internal Medicine
CPT/HCPCS: 31500; 51702; 70450; 71010; 71045; 74000; 74018; 74177; 80048; 80053; 80101; 80196; 80301; 80307; 80320; 80324; 80329; 80345; 80346; 80353; 80358; 80361; 80365; 81001; 82003; 82055; 82140; 82550; 82607; 82728; 82746; 82805; 82948; 83540; 83605; 83690; 83735; 83992; 84443; 85014; 85018; 85025; 85045; 85610; 85730; 87040; 87070; 87205; 93005; 94003; 94640; 94761; 94762; 96361; 96365; 96366; 96368; 96375; 97110; 97161; 97530; 99285; 99291; A9270; C9113; G0431; G0434; G0479; G0480; G6038; G6039; G6040; J0330; J0692; J1630; J1650; J2020; J2543; J3010; J3475; J3480; J7030; J7040; Q9967; S0028; S0164; XXXXX